=== PATIENT | female | born 1975 | race Caucasian/White ===

== ENCOUNTER 2019-04-10 12:01 | Emergency (ER) | payer OTHER ==
[~2019-04-10] VITALS: Ht 165 cm; Wt 99.2 kg
[2019-04-10 13:50] LABS: BASOPHILS % (AUTO) 0 % (0-10); EOSINOPHILS # (AUTO) 0.2 10^3/uL (0.0-0.3); EOSINOPHILS % (AUTO) 2 % (0-10); HEMATOCRIT 41 % (35-52); HEMOGLOBIN 14.3 G/DL (11.5-16.0); LYMPHOCYTES % (AUTO) 29 % (12-44); MEAN CORPUSCULAR HEMOGLOBIN 30 PG (25-34); MEAN CORPUSCULAR HGB CONC 35 G/DL (32-36); MEAN CORPUSCULAR VOLUME 85 FL (80-99); MEAN PLATELET VOLUME 8.9 FL (7.4-10.4); MONOCYTES # (AUTO) 0.7 X 10^3 (0.0-1.0); MONOCYTES % (AUTO) 6 % (0-12); NEUTROPHILS # (AUTO) 6.5 X 10^3 (1.8-7.8); NEUTROPHILS % (AUTO) 62 % (42-75); PLATELET COUNT 372 10^3/uL (130-400); RED CELL DISTRIBUTION WIDTH 13.7 % (10.0-14.5); WHITE BLOOD COUNT 10.4 10^3/uL (4.3-11.0)
[2019-04-10] MEDS ORDERED: LACTATED RINGERS 1,000 ML IV ONE (14:01)
--- NOTE | 2019-04-10 14:09 | ED Cardiac General ---
History of Present Illness General Chief Complaint: Cardiac/General Problems Stated Complaint: FAST HEART RATE/DIZZINESS Nursing Triage Note: Patient ambulatory to ER room 5 with complaint of fast heart rate and dizziness. Patient states she was driving from her home in [place] to work in [place] when she suddenly sonal palpations in her chest and her heart started beating fast. She states she also has been dizzy with this episode. She has a similar episode yesterday but it resolved. She states this happened approximately 10 years ago and had a halter monitor placed. She states the only thing she was diagnosed with was tachycardia. She denies any chest pain or shortness of breath. Source: patient Exam Limitations: no limitations (NOELLE SON MED STUDENT) History of Present Illness Date Seen by Provider: Apr 10, 2019 Time Seen by Provider: 13:27 Initial Comments Pt complains of episode of racing heart with associated "haziness" in her head, rushing sound in her ears and nasal congestion. Pt has experienced these episodes before and was previously worked up by a aircraft maintenance technician with halter monitor in 2008 however no events were recorded. She does experience headaches behind her eyes during vision strain but they resolve with eye rest. She denies chest pain, edema, recent illness, new occupational or environmental exposures. She endorses a history of anxiety and depression but does not take any medications. Worried about driving to [place] tomorrow and having a worse episode that impairs driving. Timing/Duration: 1 hour Severity: mild Location: substernal Activities at Onset: none (driving ) Prior CP/Workup: other (halter monitor in 2008 ) Associated Systoms: No Chest Pain, No Cough, No Diaphoresis, No Fever/Chills, No Loss of Appetite, No Nausea/Vomiting, No Rash, No Shortness of Air, No Syncope, No Weakness (NOELLE SON MED STUDENT) Allergies and Home Medications Allergies Coded Allergies: cephalexin (Verified Adverse Reaction, Mild, Vomiting, 04/10/19) Patient Home Medication List Home Medication List Reviewed: Yes (NOELLE SON MED STUDENT) Home Medication List Reviewed: Yes (KP JIMENEZ MD) Review of Systems Review of Systems Constitutional: No chills, No diaphoresis, No fever, No weakness EENTM: No Blurred Vision, No Eye Pain, No Ear Pain, No Mouth Pain; Nose Congestion; No Nose Pain, No Throat Pain Respiratory: Denies Cough, Denies Orthopnea, Denies Shortness of Air Cardiovascular: See HPI; Denies Chest Pain, Denies Edema; Irregular Heart Rate; Denies Lightheadedness; Palpitations; Denies Syncope Gastrointestinal: Denies Abdominal Pain, Denies Constipated, Denies Diarrhea, Denies Nausea, Denies Vomiting Genitourinary: Denies Burning, Denies Discharge, Denies Incontinence, Denies Pain, Denies Urgency Musculoskeletal: No back pain, No joint pain Skin: No lesions, No lumps, No rash Psychiatric/Neurological: Anxiety, Depressed, Headache Endocrine: Intolerance to Cold; Denies Intolerance to Heat, Denies Unexplained Weight Gain Hematologic/Lymphatic: Denies Anemia, Denies Blood Clots, Denies Easy Bleeding (NOELLE SON MED STUDENT) Respiratory: Denies Cough, Denies Shortness of Air Cardiovascular: Irregular Heart Rate, Palpitations (KP JIMENEZ MD) Past Vyxrrxr-Hfpwve-Lcxitt Hx Past Med/Social Hx: Reviewed Nursing Past Med/Soc Hx (KP JIMENEZ MD) Patient Social History Alcohol Use: Denies Use Recreational Drug Use: No Smoking Status: Never a Smoker 2nd Hand Smoke Exposure: No Recent Foreign Travel: No Contact w/Someone Who Travel: No Recent Infectious Disease Expo: No Recent Hopitalizations: No Physical Abuse: No Sexual Abuse: No Mistreated: No Fear: No (NOELLE SON MED STUDENT) Immunizations Up To Date PED Vaccines UTD: Yes (NOELLE SON MED STUDENT) Seasonal Allergies Seasonal Allergies: No (NOELLE SON MED STUDENT) Past Medical History Surgeries: Yes (septum) Gallbladder Respiratory: No Cardiac: Yes (tachycardia) Palpitations Neurological: No Last Menstrual Period: Apr 10, 2019 Genitourinary: No Gastrointestinal: No Musculoskeletal: No Endocrine: No HEENT: No Cancer: No Psychosocial: No (NOELLE SON MED STUDENT) Family Medical History Reviewed Nursing Family Hx (KP JIMENEZ MD) Other Conditions/Hx (sister received vagotomy for similar issue ) (NOELLE SON MED STUDENT) Physical Exam Vital Signs Vital Signs - First Documented 04/10/19 13:00 Temp 36.9 Pulse 127 Resp 18 B/P (MAP) 164/111 (128) O2 Delivery Room Air (KP JIMENEZ MD) Vital Signs Capillary Refill : Less Than 3 Seconds (NOELLE SON,MED STUDENT) Height, Weight, BMI Height: '" Weight: lbs. oz. kg; 36.00 BMI Method: General Appearance: No Apparent Distress, WD/WN, Anxious HEENT: PERRL/EOMI, TMs Normal, Normal ENT Inspection, Pharynx Normal Neck: Non Tender, Supple; No Carotid Bruit, No Thyromegaly Respiratory: Chest Non Tender, Lungs Clear, Normal Breath Sounds, No Accessory Muscle Use, No Respiratory Distress Cardiovascular: No Edema, No Gallop, No Murmur, Normal Peripheral Pulses, Tachycardia Gastrointestinal: Non Tender, Soft Extremity: Non Tender, No Calf Tenderness, No Pedal Edema Neurologic/Psychiatric: Alert, Oriented x3, Normal Mood/Affect Skin: Normal Color, Warm/Dry Lymphatic: No Adenopathy (anterior/posterior cervical, supra/infraclavicular ) (NOELLE SON,MED STUDENT) Respiratory: Lungs Clear, Normal Breath Sounds Cardiovascular: No Murmur, Tachycardia Gastrointestinal: Non Tender, Soft Extremity: Non Tender, No Calf Tenderness, No Pedal Edema Neurologic/Psychiatric: Alert, Oriented x3 Skin: Normal Color, Warm/Dry (KP JIMENEZ MD) Progress/Results/Core Measures Results/Orders Lab Results Laboratory Tests Test 04/10/19 13:15 04/10/19 14:12 Range/Units White Blood Count 10.4 4.3-11.0 10^3/uL Red Blood Count 4.85 4.35-5.85 10^6/uL Hemoglobin 14.3 11.5-16.0 G/DL Hematocrit 41 35-52 % Mean Corpuscular Volume 85 80-99 FL Mean Corpuscular Hemoglobin 30 25-34 PG Mean Corpuscular Hemoglobin Concent 35 32-36 G/DL Red Cell Distribution Width 13.7 10.0-14.5 % Platelet Count 372 130-400 10^3/uL Mean Platelet Volume 8.9 7.4-10.4 FL Neutrophils (%) (Auto) 62 42-75 % Lymphocytes (%) (Auto) 29 12-44 % Monocytes (%) (Auto) 6 0-12 % Eosinophils (%) (Auto) 2 0-10 % Basophils (%) (Auto) 0 0-10 % Neutrophils # (Auto) 6.5 1.8-7.8 X 10^3 Lymphocytes # (Auto) 3.0 1.0-4.0 X 10^3 Monocytes # (Auto) 0.7 0.0-1.0 X 10^3 Eosinophils # (Auto) 0.2 0.0-0.3 10^3/uL Basophils # (Auto) 0.0 0.0-0.1 10^3/uL D-Dimer 0.36 0.00-0.49 UG/ML Sodium Level 139 135-145 MMOL/L Potassium Level 3.7 3.6-5.0 MMOL/L Chloride Level 106 98-107 MMOL/L Carbon Dioxide Level 23 21-32 MMOL/L Anion Gap 10 5-14 MMOL/L Blood Urea Nitrogen 9 7-18 MG/DL Creatinine 0.81 0.60-1.30 MG/DL Estimat Glomerular Filtration Rate > 60 BUN/Creatinine Ratio 11 Glucose Level 107 H 70-105 MG/DL Calcium Level 9.1 8.5-10.1 MG/DL Corrected Calcium 8.9 8.5-10.1 MG/DL Magnesium Level 1.9 1.6-2.4 MG/DL Total Bilirubin 0.3 0.1-1.0 MG/DL Aspartate Amino Transf (AST/SGOT) 18 5-34 U/L Alanine Aminotransferase (ALT/SGPT) 16 0-55 U/L Alkaline Phosphatase 74 40-136 U/L Troponin I < 0.028 <0.028 NG/ML Total Protein 6.9 6.4-8.2 GM/DL Albumin 4.2 3.2-4.5 GM/DL Thyroid Stimulating Hormone (TSH) 1.62 0.35-4.94 UIU/ML Free Thyroxine 0.90 0.70-1.48 NG/DL Serum Test, Qualitative NEGATIVE NEGATIVE Urine Color MALIHA H Urine Clarity CLOUDY Urine pH 7.0 5-9 Urine Specific [place] 1.025 H 1.016-1.022 Urine Protein TRACE NEGATIVE Urine Glucose (UA) NEGATIVE NEGATIVE Urine Ketones NEGATIVE NEGATIVE Urine Nitrite NEGATIVE NEGATIVE Urine Bilirubin NEGATIVE NEGATIVE Urine Urobilinogen 0.2 < = 1.0 MG/DL Urine Leukocyte Esterase NEGATIVE NEGATIVE Urine RBC (Auto) 3+ H NEGATIVE Urine RBC >100 H /HPF Urine WBC RARE /HPF Urine Squamous Epithelial Cells 2-5 /HPF Urine Crystals NONE /LPF Urine Bacteria NEGATIVE /HPF Urine Casts NONE /LPF Urine Mucus NEGATIVE /LPF Urine Culture Indicated NO (PK JIMENEZ MD) My Orders Orders - KP JIMENEZ MD Magnesium (04/10/19 14:00) Troponin I (04/10/19 14:00) Ed Iv/Invasive Line Start (04/10/19 14:01) Lactated Ringers (Lr 1000 Ml Iv Solution (04/10/19 14:01) Metoprolol Succinate (Xl) Tab (Toprol Xl (04/10/19 14:15) (KP JIMENEZ MD) Medications Given in ED Current Medications Medications Dose Ordered Sig/Jarad Route Start Time Stop Time Status Last Admin Dose Admin Lactated Ringer's 1,000 ml @ 0 mls/hr Q0M ONCE IV 04/10/19 14:01 04/10/19 14:02 DC 04/10/19 14:43 1,000 MLS/HR Metoprolol Succinate 25 mg ONCE ONCE PO 04/10/19 14:15 04/10/19 14:16 DC 04/10/19 15:08 25 MG (KP JIMENEZ MD) Vital Signs/I&O 04/10/19 13:00 Temp 36.9 Pulse 127 Resp 18 B/P (MAP) 164/111 (128) O2 Delivery Room Air (KP JIMENEZ MD) Blood Pressure Mean: 128 POS Progress Progress Note : Time: 14:07 Progress Note Seen and evaluated. Ordered CBC, CMP with troponin, d-dimer, TSH, CXR, magnesium and EKG. Will admin 1L fluid and metoprolol to reduce rate. 1433: CXR normal, CBC all wnl. Troponin negative. Discussed following up with community clinic in [place] for anxiety/depression. Prescribing 12h metoprolol for interim until pt can get to follow up. Patient agrees with plan. (NOELLE SON,MED STUDENT) Progress Note : Progress Note Seen and evaluated the patient and agree with above except as indicated. Have directed the plan of care. Patient is here with palpitations and feeling of headache and wishing sound in the ear. She had a similar episode many years ago and had Holter monitor for 2 days. This did not show anything significant per the patient. Denies tobacco or caffeine use or any other stimulants. Exam as above. Lantus for labs, thyroid study, chest x-ray and we will give LR 1 L bolus and administered 25 mg of Toprol-XL. Monitor patient. 1610: Heart rate improving and patient feeling better. Blood pressure has improved. We will initiate metoprolol 25 mg by mouth twice a day and give prescription for 30 days and she will follow-up at the [facility] or similar in [place]. Instructed to follow-up or follow-up back here as needed. Discharged home with return precautions. Patient verbalize understanding instructions and agreement with plan. (KP JIMENEZ MD) Departure Impression Primary Impression: Atrial tachycardia Additional Impression: High blood pressure Qualified Codes: I10 - Essential (primary) hypertension Disposition: HOME, SELF-CARE Condition: Improved Departure-Patient Inst. Decision time for Depature: 16:18 (KP JIMENEZ MD) Referrals: CLINTON COLUNGA MD FACP FACC CCDS Patient Instructions: Tachycardia (DC), High Blood Pressure (DC) Add. Discharge Instructions: All discharge instructions reviewed with patient and/or family. Voiced understanding. Take medications as directed. Follow-up with your doctor or the aircraft maintenance technician listed within one week for recheck and further evaluation. Return for worse pain, fever, vomiting, weakness, breathing problems, palpitations or other concerns as needed. Drink plenty of fluids and eat normal diet. You should use a low-salt diet. Scripts Metoprolol Tartrate (Metoprolol Tartrate) 25 Mg Tablet 25 MG PO BID, #60 TAB Prov: KP JIMENEZ MD 04/10/19 NOELLE SON,MED STUDENT Apr 10, 2019 14:09 KP ORDOÑEZ MD Apr 10, 2019 16:20 POS
[2019-04-10 14:14] LABS: ALANINE AMINOTRANSFERASE 16 U/L (0-55); ALBUMIN 4.2 GM/DL (3.2-4.5); ALKALINE PHOSPHATASE 74 U/L (40-136); BILIRUBIN,TOTAL 0.3 MG/DL (0.1-1.0); BUN/CREATININE RATIO 11; CALCIUM 9.1 MG/DL (8.5-10.1); CARBON DIOXIDE 23 MMOL/L (21-32); CHLORIDE 106 MMOL/L (98-107); CREATININE SERUM 0.81 MG/DL (0.60-1.30); GFR ESTIMATED > 60; GLUCOSE 107 MG/DL (70-105); POTASSIUM 3.7 MMOL/L (3.6-5.0); SODIUM 139 MMOL/L (135-145); TOTAL PROTEIN 6.9 GM/DL (6.4-8.2)
--- NOTE | 2019-04-10 14:15 | Diagnostic Imaging Report ---
INDICATION: Tachycardia. COMPARISON: None. FINDINGS: Single frontal view of the chest demonstrates normal heart size and pulmonary vascularity. The lungs are well aerated and clear. No large pleural effusion or pneumothorax is seen. The visualized osseous structures show no acute abnormalities. IMPRESSION: 1. No acute cardiopulmonary process. Dictated by: Dictated on workstation # [id number]
[2019-04-10 14:16] LABS: MAGNESIUM 1.9 MG/DL (1.6-2.4)
[2019-04-10 14:27] LABS: BILIRUBIN,URINE NEGATIVE (NEGATIVE); CLARITY,URINE CLOUDY; COLOR,URINE AMBER; GLUCOSE, URINE (UA) NEGATIVE (NEGATIVE); KETONES,URINE NEGATIVE (NEGATIVE); LEUKOCYTE ESTERASE ,URINE NEGATIVE (NEGATIVE); NITRITE,URINE NEGATIVE (NEGATIVE); PROTEIN,URINE TRACE (NEGATIVE)
[2019-04-10 14:45] LABS: BACTERIA,URINE NEGATIVE /HPF; RBC,URINE >100 /HPF; WBC,URINE RARE /HPF
--- NOTE | 2019-04-10 15:02 | NUR ---
Pharmacy called for the second time for metoprolol.
[2019-04-10] MEDS ORDERED: METO-333 PO (16:20)
[2019-04-10 16:55] VITALS: BP 125/90
== END 2019-04-10 16:56 | disposition home or self-care (01) ==
LOC: ER 12:04
DX: I47.1 Supraventricular tachycardia (principal); I10 Essential (primary) hypertension; F41.9 Anxiety disorder, unspecified; F32.9 Major depressive disorder, single episode, unspecified; Z88.1 Allergy status to other antibiotic agents
CPT/HCPCS: 36415; 71045; 80053; 81000; 83735; 84439; 84443; 84484; 84703; 85025; 85379